=== PATIENT | female | born 1945 | race Caucasian/White ===

== ENCOUNTER 2017-02-14 12:06 | Emergency (ER) | payer MEDICARE, OTHER ==
--- NOTE | 2017-02-14 13:27 | ED Physician Documentation ---
Upper Extremity Injury - HISTORIAN Historian: patient, spouse - HPI Stated Complaint: wrist pain Chief Complaint: Upper Extremity Injury Additional Information: lt wrist pain swelling jammed thumb sev days ago then wed played w/children w/ pain exab Onset: denies: today Where: home Severity: mild, moderate Duration: worse (ssince wed) Context: crush Associated Symptoms: denies: tingling, numbness distally, feeling loss, loss of power to arms Modifying Factors: pain on movement - ROS CONST: no problems CVS/RESP: none NEURO: none MS/SKIN/LYMPH: none GI/: denies: nausea, vomiting - PAST HX Past History: other (lo thryoid gerd depression allergies djd ibs) Allergies/Adverse Reactions: Allergies Allergy/AdvReac Type Severity Reaction Status Date / Time latex Allergy Verified 02/14/17 12:23 Home Medications: Ambulatory Orders Medication Instructions Recorded Celecoxib [Celebrex] 50 mg PO D 12/19/15 Omeprazole 20 mg PO D 12/19/15 Levothyroxine Sodium [Unithroid] 175 mcg PO DAILY 05/31/16 Loratadine [Claritin] 10 mg PO DAILY 05/31/16 Fluoxetine HCl [Prozac] 20 mg PO QDAY 02/14/17 - SOCIAL HX Smoking History: non-smoker Alcohol Use: none Drug Use: none - FAMILY HX Family History: no significant history - VITAL SIGNS Vital Signs: Vital Signs Temp Pulse Resp BP Pulse Ox 98.4 F 72 16 149/65 96 02/14/17 12:17 02/14/17 12:17 02/14/17 12:17 02/14/17 12:17 02/14/17 12:17 - REVIEWED ASSESSMENTS Nursing Assessment Reviewed: Yes Vitals Reviewed: Yes ED Results Lab/Radiology - Radiology Radiology Impressions: poss navicular fx=-rad says no - Orders Orders: ED Orders Category Date Time Status Cock-Up Splint 1T Care 02/14/17 13:12 Ordered WRIST 3 VIEWS OR MORE [RAD] Stat Exams 02/14/17 Ordered Upper Extremity Injury Physic - Physical Exam General Appearance: mild distress Hand: normal inspection, non-tender Wrist: bone tenderness (base thumb). No: normal inspection, non-tender, normal ROM, asymmetry Elbow/Forearm: normal inspection, non-tender Shoulder: normal inspection Neuro/Vascular/Tendon: no vascular compromise, motor nml, sensation nml. No: abnml color, abnml warmth Skin: warm,dry Head/ENT: nml inspection Neck/Back: nml inspection Resp/CVS: chest non-tender, breath sounds nml, heart sounds nml, no resp. distress Abdomen: non-tender Discharge Clincal Impression: Left wrist sprain Referrals: Tunde Harris MD [Primary Care Provider] - 2 Days Home Medications: Ambulatory Orders Celecoxib [Celebrex] 50 mg PO D 12/19/15 Omeprazole 20 mg PO D 12/19/15 Levothyroxine Sodium [Unithroid] 175 mcg PO DAILY 05/31/16 Loratadine [Claritin] 10 mg PO DAILY 05/31/16 Fluoxetine HCl [Prozac] 20 mg PO QDAY 02/14/17 Condition: Good Disposition: 01 HOME, SELF-CARE Decision to Admit: NO Decision Time: 13:25
[2017-02-14 13:46] VITALS: BP 137/55
--- NOTE | 2017-02-14 14:01 | Diagnostic Imaging Report ---
AVERY HENSON [facility] [address] [id number] Report Submission Date: Feb 14, 2017 12:52:37 PM CDT Patient Study Name: DON STEVENSON Date: Feb 14, 2017 12:30:59 PM CDT Modality Type: CR Gender: F Description: UPPER EXTREMITY : 47 Institution: [facility] Physician: AVERY HENSON Examination: Plain film wrist History: Wrist discomfort Comparison exams: None available Findings: 3 views of the wrist demonstrates normal cortical margins. No evidence for fracture line. No soft tissue abnormality. Impression: No osseous abnormality. Electronically signed on Feb 14, 2017 12:52:37 PM CDT by: Seng BARRIOS
== END 2017-02-14 13:44 | disposition home or self-care (01) ==
LOC: ED 12:06
DX: S63.502A Unspecified sprain of left wrist, initial encounter (principal); X58.XXXA Exposure to other specified factors, initial encounter; Y93.9 Activity, unspecified; Y99.9 Unspecified external cause status
CPT/HCPCS: 73110; L3908; 99283

== ENCOUNTER 2017-12-25 12:39 | Emergency (ER) | payer MEDICARE, OTHER ==
--- NOTE | 2017-12-25 12:43 | ED Physician Documentation ---
General Adult - HISTORIAN Historian: patient - HPI Stated Complaint: foreign body in L eye Chief Complaint: General Adult Onset: minutes Timing: still present Severity: moderate Further Comments: yes (Pt is a 72 yo female who got some debris in her L eye while mowing the lawn shortly [employer]. Pt flushed her eye at home, but says it still feels as though there is something in there.) - ROS CONST: no problems EYES/ENT: other (foreign body L eye) CVS/RESP: none GI/: none MS/SKIN/LYMPH: none - PAST HX Past History: other (GERD, hypothyroidism, Depression, Environmental allergies) Allergies/Adverse Reactions: Allergies Allergy/AdvReac Type Severity Reaction Status Date / Time latex Allergy Verified 12/25/17 13:30 Home Medications: Ambulatory Orders Medication Instructions Recorded Celecoxib [Celebrex] 50 mg PO D 12/19/15 Omeprazole 20 mg PO D 12/19/15 Levothyroxine Sodium [Unithroid] 175 mcg PO DAILY 05/31/16 Loratadine [Claritin] 10 mg PO DAILY 05/31/16 Fluoxetine HCl [Prozac] 20 mg PO QDAY 02/14/17 - SOCIAL HX Smoking History: non-smoker - FAMILY HX Family History: No - VITAL SIGNS Vital Signs: Vital Signs Temp Pulse Resp BP Pulse Ox 137/55 02/14/17 13:44 - REVIEWED ASSESSMENTS Nursing Assessment Reviewed: Yes Vitals Reviewed: Yes Progress - Progress Progress: L eye flushed with 250 NS in ER no fb seen pt may f/u [facility] if sx persist. General Adult Physical Exam - PHYSICAL EXAM GENERAL APPEARANCE: mild distress EENT: TASH, other (No fb seen with magnifier; no Fluorescein uptake L eye) NECK: normal inspection, supple RESPIRATORY: no resp distress, chest non-tender, breath sounds normal CVS: reg rate & rhythm BACK: normal inspection SKIN: warm/dry, normal color EXTREMITIES: non-tender, normal range of motion, no evidence of injury NEURO: oriented X3, motor nml, sensation nml Discharge Clincal Impression: L eye irritation from foreign body Referrals: Tunde Harris MD [Primary Care Provider] - Condition: Good Disposition: 01 HOME, SELF-CARE Decision to Admit: NO Decision Time: 13:28
[2017-12-25 13:49] VITALS: BP 124/62
== END 2017-12-25 13:30 | disposition home or self-care (01) ==
LOC: ED 12:39
DX: T15.02XA Foreign body in cornea, left eye, initial encounter (principal); Y93.H2 Activity, gardening and landscaping; H57.8 Other specified disorders of eye and adnexa
CPT/HCPCS: 99283